=== PATIENT | female | born 1985 | race Two or more races ===

== ENCOUNTER 2020-04-28 14:30 | Outpatient (CLI) | payer OTHER | END 2020-04-28 14:43 | disposition home or self-care (01) | LOC: RAD 14:30 | PROVIDERS: ATTEND Physical Medicine & Rehabilitation | DX: M41.85 Other forms of scoliosis, thoracolumbar region (principal); M54.5 Low back pain; M54.16 Radiculopathy, lumbar region ==

== ENCOUNTER 2021-06-15 15:00 | Outpatient (CLI) | payer OTHER | END 2021-06-15 15:20 | disposition home or self-care (01) | LOC: PPH VACUNA 15:00 | PROVIDERS: ATTEND Emergency Medicine Pediatric Emergency Medicine | DX: Z23 Encounter for immunization (principal) ==